=== PATIENT | male | born 1955 | race Two or more races ===

== ENCOUNTER 2017-06-22 13:30 | Emergency (ER) | payer OTHER ==
[~2017-06-22] VITALS: Ht 175.3 cm; Wt 81.6 kg
[2017-06-22 14:35] VITALS: BP 151/62
[2017-06-22] MEDS ORDERED: KETOROLAC TROMETH 60MG/2ML VIAL IM ONE (15:15)
== END 2017-06-22 15:21 | disposition home or self-care (01) ==
LOC: ER 13:35
DX: M10.9 Gout, unspecified (principal)
CPT/HCPCS: 96372; 99283; J1885